=== PATIENT | female | born 1945 | race Caucasian/White ===

== ENCOUNTER 2018-06-02 05:23 | Inpatient (IN) ==
[2018-06-02] MEDS ORDERED: Chlorhexidine Gluconate 2% 1 Pack (2 Cloths) TOPICAL ONE (06:11)
[2018-06-02] MEDS ORDERED: Metoprolol Tartrate 25 MG Tablet PO ONE (06:11)
[2018-06-02] MEDS ORDERED: Dexamethasone Inj 20 MG/5 ML Vial IV.PUSH PRN (06:15)
[2018-06-02] MEDS ORDERED: Sodium Chlor 0.9% Inj 73.07 ML, Ropivacaine 0.5% PF Inj 24.63 ML, Ketorolac Inj 30 MG, ... P-ARTICULR SCH ×5 (06:30)
[2018-06-02] MEDS ORDERED: Chlorhexidine 4% Topical 120 APPLIC/120 ML Bottle TOPICAL SCH (06:30)
[2018-06-02] MEDS ORDERED: Post-op Orders (for Pharmacy) OTHER STA (06:56)
[2018-06-02] MEDS ORDERED: HYDROmorphone PF Inj 1 MG/ML Ampul IV.PUSH PRN (06:56)
[2018-06-02] MEDS ORDERED: ceFAZolin 2 GM Premix Inj 2 GM/50 ML PIGGYBACK IV.SIG SCH (07:00)
[2018-06-02] MEDS ORDERED: Vancomycin Inj 1,000 MG in Sodium Chlor 0.9% Inj 250 ML IV.SIG SCH (07:00)
[2018-06-02] MEDS ORDERED: TRANEXAMIC ACID IV.SIG SCH (07:00)
[2018-06-02] MEDS ORDERED: Sodium Chlor 0.9% Inj 500 ML IV.SIG SCH (07:00)
[2018-06-02] MEDS ORDERED: SODIUM CHLOR 0.9% IV.SIG SCH (07:00)
[2018-06-02] MEDS ORDERED: fentaNYL Citrate Inj 100 MCG/2 ML Ampul ONE ×2 (07:24→10:46)
[2018-06-02] MEDS ORDERED: Bupivacaine Liposomal PF 1.3% Inj 20 ML Vial ONE (07:24)
[2018-06-02] MEDS ORDERED: Clindamycin Inj 600 MG/4 ML Vial ONE (09:10)
[2018-06-02] MEDS ORDERED: Tranexamic Acid Inj 3,000 MG in Sodium Chlor 0.9% Inj 100 ML P-ARTICULR SCH (09:17)
--- NOTE | 2018-06-02 10:31 | MP ---
cc: Andreas Rodriguez MD DATE OF OPERATION: 06/02/2018 PREOPERATIVE DIAGNOSIS: Right knee osteoarthritis. POSTOPERATIVE DIAGNOSIS: Right knee osteoarthritis. PROCEDURE PERFORMED: Right total knee arthroplasty. SURGEON: Andreas Rodriguez MD. DELIVERY CONSULTANT: EARL Hatfield. ANESTHESIA: General with femoral nerve adductor canal block. ESTIMATED BLOOD LOSS: 100 mL. TOURNIQUET TIME: 28 minutes at 250 mmHg. COMPLICATIONS: None. IMPLANTS USED: DePuy Attune size 6 posterior stabilized femoral component, size 6 rotating platform tibial baseplate, size 38 patella, size 8 mm polyethylene tibial insert. JUSTIFICATION: The patient is a 72-year-old female with history of severe osteoarthritis involving the right knee. She has a history of severe disabling pain with standing, walking, ambulation, weightbearing activities, and severe pain at rest. She has failed greater than 3 months of nonoperative conservative treatment to include medication therapy, injections, ambulatory assistive aids, home exercise program, activity, medication, weight loss. X-rays of the right knee reveal severe osteoarthritis, kbxu-tv-vrim joint space narrowing, subchondral sclerosis, subchondral cyst, osteophyte formation with subluxation and deformity. The patient was counseled as to the risks, benefits, and alternatives to a total knee arthroplasty. The risks were discussed, which include but are not limited to anesthesia, bleeding, infection, damage to nerves and blood vessels, pain, stiffness, fracture, failure of components, blood clots, pulmonary embolism, and even . The patient's pain is severe. She favored the benefits over the risks. She did wish to proceed with surgery. PROCEDURE IN DETAIL: Written consent was obtained. The patient was identified by name, taken to the operating room and placed supine on the operating table. General anesthesia was administered, as well as 2 grams of IV Ancef and 600 mg of IV clindamycin. She did have a reaction as we began infusing vancomycin and so this was stopped. A well-padded tourniquet was placed on the right thigh. The right lower extremity was then prepped and draped using isopropyl alcohol, Hibiclens solution, and ChloraPrep solution. After a timeout was performed, an Esmarch bandage was used to exsanguinate the right lower extremity. Tourniquet was inflated to 250 mmHg. A longitudinal incision was made over the anterior aspect of the right knee. Medial parapatellar arthrotomy was performed. Patella was everted. The patellar resection guide was used to resect 9 mm of the patella. A size 38 mm guide was placed. Three drill holes were placed and a 38 mm trial fit well. Attention was turned to the femur, where an intramedullary guide was placed and distal femoral guide was set to remove 10 mm of distal femur, 5 degrees off the anatomic valgus axis alignment. Oscillating saw used to perform the distal femoral cut. Attention was turned to the tibia. An extramedullary tibial guide was set to remove 6 mm at the lowest portion of the medial tibial plateau. Tibial guide was pinned into placed and tibial cut was performed. A 5 mm spacer block ensured full extension. Attention was turned back to the femur. AP sizing block measured a size 6. The anterior reference 3-degree external rotation guide was used to pin a size [address] The anterior, posterior, and chamfer cuts were performed. A size 6 PCL box was pinned in place and the PCL was boxed with an oscillating saw. The medial and lateral meniscus remnants were removed, as well as bone and soft tissue debris from the posterior portion of the knee. A size 6 tibia base plate was pinned in place and tibia was drilled with a punch. Trial components were impacted and cemented in place. With the current components, the leg could to achieve full extension to 0 degrees and flexion to 140. No evidence of tibial liftoff. Varus valgus balance were appropriate and symmetric, and the patella was noted to track centrally. With the tourniquet deflated, Bovie cautery was used for hemostasis. The surgical wound was thoroughly irrigated with sterile saline and antibiotic-impregnated solution. The arthrotomy incision was closed with #1 Vicryl suture, subcutaneous layer with 2-0 Vicryl suture, skin was closed with Dermabond. Sterile dressing was applied. The patient tolerated the procedure well. No intraoperative complications noted. Rudy Kc PA-C, was present throughout the entire procedure to include patient positioning and the procedure itself. The medical necessity of a physician library technical assistant was indicated in this case due to the complexity of the procedure. He assisted with appropriate manipulation of the patient's leg and also retraction of the muscles, tendons, bone, and neurovascular structures. He assisted with preparation of bone and also implantation of the prosthetic replacement. MD Lucien Ro , 10:07 AM , 10:14 AM
[2018-06-02] MEDS ORDERED: Sugammadex Inj 200 MG/2 ML Vial IV.PUSH ONE (10:46)
[2018-06-02] MEDS ORDERED: Morphine Inj 4 MG/ML Vial ONE (10:46)
[2018-06-02] MEDS: Multivitamin/Minerals Therapeutic Tablet PO SCH ×2 (11:18→20:50)
[2018-06-02] MEDS: Senna/Docusate Sodium 8.6/50 MG Tablet PO SCH ×2 (11:18→20:21)
--- NOTE | 2018-06-02 11:38 | XR ---
EXAM DATE: 06/02/2018 11:12 AM EST AGE/SEX: 72 years / Female INDICATIONS: Post-op right total knee arthroplasty. CLINICAL DATA: This is the patient's initial encounter. Patient reports that signs and symptoms have been present for 1 day and indicates a pain score of 2/10. MEDICAL/SURGICAL HISTORY: None. Cholecystectomy. Gastric bypass. Mastectomy, right. COMPARISON: No prior exams available for comparison. FINDINGS: Postsurgical changes following right knee replacement are noted. Prostheses appear to be well seated in satisfactory alignment. Small amount of residual air is identified in the joint cavity. Osseous structures remain intact without evidence of acute complication. CONCLUSION: Satisfactory postoperative appearance following right knee replacement. Electronically signed by: George Ramírez MD 06/02/2018 11:37 AM EST
--- NOTE | 2018-06-02 14:05 | P.CONIM ---
History of Present Illness Service: [facility] Consult date: 06/02/18 Requesting Physician: Andreas Rodriguez Reason for Consult: MEDICAL MANAGEMENT Primary Care Provider: Hermelindo Daigle Chief Complaint: SP RIGHT TOTAL KNEE ARTHROPLASTY History of Present Illness: Patient is a 72-year-old female who underwent a right total knee arthroplasty due to severe osteoarthritis with failed conservative treatment. Patient underwent the right total knee arthroplasty today with Dr. Andreas Rodriguez, she tolerated the procedure well. We have now been asked to consult regarding medical management. Past medical history significant for osteoarthritis and chronic back pain and history of right breast cancer as well as history of a thyroid nodule with biopsy and a history of chronic joint pain and pacemaker as well as tinnitus. Family history is significant for hypertension as well as COPD and emphysema Review of Systems All other systems reviewed negative except as stated in [facility] - History History Provided By: Patient - Medical History Medical History: Medical History (Last Reviewed 06/02/18 @ 07:47 by Douglas Saucedo) Arthritis Back pain Diminished hearing History of bradycardia History of breast cancer History of thyroid nodule Joint pain Pacemaker Tinnitus Wears glasses - Surgical History Surgical History: Surgical History (Last Reviewed 06/02/18 @ 07:47 by Douglas Saucedo) History of breast biopsy History of cholecystectomy History of gastric bypass History of mastectomy - Family History Family History: Family History (Last Updated 06/02/18 @ 14:01 by Rene Beard DO) Other COPD (chronic obstructive pulmonary disease) Family history of hypertension - Social History I have reviewed the patient's Social History: Yes - Tobacco History Second Hand Smoke Exposure: No Smoking Status: Never smoker - Alcohol History How Often Do You Have a Drink Containing Alcohol: Never - Substance Use History Substance History: No History of Abuse - Travel History History of Recent Travel: No Recent Travel in the [place] Within the Last 8 Weeks: No Recent Travel Out of the Country Within the Last 8 Weeks: No Medications and Allergies Active Medications: Active Medications Hydrocodone Bitart/Acetaminophen ([place] 7.5/325) 2 tab PO Q6H PRN PRN Reason: PAIN SCALE 5 TO 10 Hydrocodone Bitart/Acetaminophen ([place] 7.5/325) 1 tab PO Q4H PRN PRN Reason: PAIN LESS THAN 5 ON SCALE Al Hydroxide/Mg Hydroxide (Milk Of Magnesia Liq) 30 ml PO BID PRN PRN Reason: Mild Constipation Aspirin (Aspirin Chew) 81 mg PO BID [facility] Last Admin: 06/02/18 11:18 Dose: Not Given Chlorhexidine Gluconate (Hibiclens 4% Topical) 1 applicatio TOPICAL ONCE [facility] Stop: 06/06/18 06:29 Last Admin: 06/02/18 07:14 Dose: 1 applicatio Sodium Chloride 73.07 ml/Ropivacaine 24.63 ml/Ketorolac Tromethamine 30 mg/ Epinephrine HCl 0.5 mg/Clonidine HCl 80 mcg 0 ml P-ARTICULR ONCE [facility] Stop: 06/02/18 15:00 Last Admin: 06/02/18 10:00 Dose: 123.15 bag Dexamethasone Sodium Phosphate (Decadron Inj) 10 mg IV.PUSH LEASE BUYER PRN PRN Reason: PRE-OP IN OR HOLDING Stop: 06/02/18 22:00 Last Admin: 06/02/18 07:16 Dose: 10 mg Diphenhydramine HCl (Benadryl) 25 mg PO Q6H PRN PRN Reason: ITCHING Hydromorphone HCl (Dilaudid Pf Inj) 1 mg IV.PUSH Q3H PRN PRN Reason: BREAKTHROUGH PAIN Lactated Ringer's (Lr 1000 Ml Inj) 1,000 mls @ 30 mls/hr IV.SIG .Q24H [facility] Stop: 06/03/18 06:14 Last Admin: 06/02/18 07:13 Dose: 30 mls/hr Sodium Chloride (Ns Inj) 500 mls @ 30 mls/hr IV.SIG .Q10H [facility] Last Admin: 06/02/18 11:17 Dose: Not Given Cefazolin Sodium/Dextrose (Ancef 2 Gm Premix Inj) 2 gm in 50 mls @ 100 mls/hr IV.SIG LEASE BUYER [facility] Stop: 06/06/18 06:59 Last Infusion: 06/02/18 09:05 Dose: Infused Tranexamic Acid 1,375 mg/ (Sodium Chloride) 113.75 mls @ 200 mls/hr IV.SIG ONCE [facility] Stop: 06/02/18 15:00 Last Infusion: 06/02/18 09:28 Dose: Infused Tranexamic Acid 3,000 mg/ (Sodium Chloride) 130 mls @ 200 mls/hr P-ARTICULR ONCE [facility] Stop: 06/02/18 15:00 Last Admin: 06/02/18 10:00 Dose: 200 mls/hr Vancomycin HCl 1,000 mg/ (Sodium Chloride) 250 mls @ 250 mls/hr IV.SIG LEASE BUYER [facility] Stop: 06/05/18 06:17 Last Infusion: 06/02/18 07:40 Dose: 0 mls/hr Cefazolin/Sodium Chloride (Ancef 2 Gm Premix Inj) 2 gm in 100 mls @ 200 mls/hr IV.SIG Q6H [facility] Stop: 06/03/18 03:29 Lactated Ringer's (Lr 1000 Ml Inj) 1,000 mls @ 80 mls/hr IV.CONT .[id number] [facility] Last Admin: 06/02/18 10:45 Dose: 80 mls/hr Lactulose (Lactulose Liq) 30 ml PO DAILY PRN PRN Reason: SEVERE CONSITIPATION Miscellaneous Information (Misc Nursing Information) 1 each OTHER UNSCH PRN PRN Reason: SEE LABEL COMMENTS Stop: 06/03/18 10:31 Multivitamins/Minerals (Theragran-M) 1 tab PO BID [facility] Stop: 08/01/18 08:59 Last Admin: 06/02/18 11:18 Dose: Not Given Ondansetron HCl (Zofran Inj) 4 mg IV.PUSH Q6H PRN PRN Reason: NAUSEA OR VOMITING Povidone Iodine (Betadine 7.5% Scrub) 1 applicatio TOPICAL ONCE [facility] Stop: 06/06/18 06:59 Senna/Docusate Sodium (Yesenia-Colace) 1 tab PO BID [facility] Last Admin: 06/02/18 11:18 Dose: Not Given Sennosides (Senokot) 17.2 mg PO BID PRN PRN Reason: Moderate Constipation Sodium Chloride (Ns Flush) 2 ml IV.FLUSH PRN PRN PRN Reason: FLUSH AFTER USING IV ACCESS Sodium Chloride (Ns Flush) 2 ml IV.FLUSH BID [facility] Last Admin: 06/02/18 11:18 Dose: Not Given Zolpidem Tartrate (Ambien) 5 mg PO HS PRN PRN Reason: INSOMNIA Allergies Allergy/AdvReac Type Severity Reaction Status Date / Time adhesive Allergy Severe Rash Verified 06/02/18 06:36 vancomycin AdvReac Intermediate Flushing Verified 06/02/18 08:02 Home Medications Medication Instructions Recorded Confirmed Type aspirin [Adult Low Dose Aspirin] 81 mg PO DAILY 05/15/18 06/02/18 History calcium carbonate [Antacid Calcium] 215 mg PO BID 05/15/18 06/02/18 History odljzuxsm-ypakvmrz-vyx-hyalur 1 tab PO DAILY 05/15/18 06/02/18 History [Joint Health] coenzyme Q10 [Co Q-10] 10 mg PO DAILY 05/15/18 06/02/18 History qxrdd-ks-6-cxq-ver-khyzhtw-ast 1 cap PO BID 05/15/18 06/02/18 History [krill oil] tnunlhntjdtn-fax-tceg-FA-vit K 1 tab PO DAILY 05/15/18 06/02/18 History [Adults Multivitamin] turmeric 1 cap PO DAILY 05/15/18 06/02/18 History vit Q9-uvcvbs-O5-T18-toeusxmq [B 1 ml SUBLINGUAL DAILY 05/15/18 06/02/18 History Complex] vit C,Z-Zu-ywjid-lutein-zeaxan 1 tab PO DAILY 05/15/18 06/02/18 History [PreserVision AREDS-2] Exam Vital signs: Vital Signs 06/02/18 07:05 06/02/18 07:23 06/02/18 08:00 Temperature 98.5 F Pulse Rate 65 60 68 Respiratory Rate 20 18 Blood Pressure 140/63 120/61 Pulse Oximetry 99 100 100 06/02/18 10:31 06/02/18 10:45 06/02/18 11:00 Temperature 97.9 F Pulse Rate 67 68 72 Respiratory Rate 14 15 14 Blood Pressure 132/63 134/62 137/63 Pulse Oximetry 100 98 98 06/02/18 11:15 06/02/18 11:30 Temperature 97.9 F Pulse Rate 64 65 Respiratory Rate 18 16 Blood Pressure 144/65 H 121/59 L Pulse Oximetry 100 98 Intake & Output 06/01/18 06/02/18 06/02/18 18:59 06:59 18:59 Intake Total 178.75 / 178.75 Balance 178.75 / 178.75 Weight 91.5 kg 91.5 kg Intake: IV 178.75 / 178.75 Cyklokapron Inj 1,375 MG In NS 113.75 / 113.75 Inj 100 ML @ 200 mls/hr IV.SIG ONCE [facility] Rx#:[id number] Ancef 2 GM Premix Inj 2 gm In 50 / 50 50 ml @ 100 mls/hr IV.SIG LEASE BUYER [facility] Rx#:[id number] Other: Weight On Admission 91.5 kg Narrative: GENERAL: Awake alert and oriented x3 talkative and cooperative --in no acute distress at this time SKIN: Warm and dry. HEAD: Atraumatic. Normocephalic. EYES: Pupils equal and round. No scleral icterus. No injection or drainage. EOMI ENT: No nasal bleeding or discharge. Mucous membranes pink and moist. NECK: Trachea midline. No JVD. Supple CARDIOVASCULAR: Regular rate and rhythm. S1-S2 no S3 or S4 RESPIRATORY: No accessory muscle use. Clear to auscultation. Breath sounds equal bilaterally. GASTROINTESTINAL: Abdomen soft, non-tender, nondistended. Hepatic and splenic margins not palpable. MUSCULOSKELETAL: Extremities without clubbing, cyanosis, or edema. No obvious deformities. Right lower extremity is dressed and wrapped NEUROLOGICAL: Awake and alert. No obvious cranial nerve deficits. Motor grossly within normal limits. Five out of 5 muscle strength in the arms and legs. Normal speech. PSYCHIATRIC: Appropriate mood and affect; insight and judgment normal. Results - Labs Labs: Laboratory Results - last 24 hr 06/02/18 06:49 Blood Type B Positive Blood Type Recheck Required Antibody Screen Negative - Imaging Impressions Knee X-Ray 06/02/18 06:55 CONCLUSION: Satisfactory postoperative appearance following right knee replacement. Assessment and Plan - Plan Status post right total knee arthroplasty due to severe osteoarthritis -Pain control per orthopedic -DVT prophylaxis per orthopedic Chronic back pain -Pain control as needed History of right breast cancer -Stable at this time History of thyroid nodule with biopsy -Check a TSH and a free T4 History of pacemaker -Currently stable History of tinnitus -Currently stable History of right breast biopsy with right breast cancer currently stable History of cholecystectomy History of gastric bypass History of right mastectomy Morbid obesity-weight loss recommended DVT and GI prophylaxis Home meds mainly consist of fvgy-kpb-szdgqch medications A.m. labs Code Status: Full code Discussed Condition With: RN and patient Discharge Planning: Pending orthopedic clearance
[2018-06-02] MEDS ORDERED: ceFAZolin 2 GM Premix Inj 2 GM/100 ML BAG IV.SIG SCH (15:00)
[2018-06-02] MEDS: ceFAZolin 2 GM Premix Inj 2 GM/50 ML PIGGYBACK IV.SIG SCH ×2 (17:42→20:20)
[2018-06-02] MEDS: Famotidine 20 MG Tablet PO SCH (20:21)
[2018-06-02] MEDS ORDERED: Zolpidem Tartrate 5 MG Tablet PO PRN (21:00)
[2018-06-03] MEDS: ceFAZolin 2 GM Premix Inj 2 GM/50 ML PIGGYBACK IV.SIG SCH (03:35)
[2018-06-03 08:11] LABS: Baso % (Auto) 0.4 % (0.0-2.0); Eos # (Auto) 0.1 th/mm3 (0.0-0.4); Eos % (Auto) 0.6 % (0.0-4.0); Hematocrit 29.3 % (35.0-46.0); Hemoglobin 9.4 gm/dL (11.6-15.3); Lymph # (Auto) 1.1 th/mm3 (1.0-4.8); Lymph % (Auto) 12.7 % (9.0-44.0); Mean Corpuscular Hemoglobin 23.6 pg (27.0-34.0); Mean Corpuscular Volume 73.7 fL (80.0-100.0); Mean Platelet Volume 9.1 fL (7.0-11.0); Mono # (Auto) 0.8 th/mm3 (0.0-0.9); Mono % (Auto) 8.8 % (0.0-8.0); Neut # (Auto) 6.8 th/mm3 (1.8-7.7); Neut % (Auto) 77.5 % (16.0-70.0); Platelet Count 176 th/mm3 (150-450); Red Blood Count 3.97 mil/mm3 (4.00-5.30); Red Cell Distribution Width 17.2 % (11.6-17.2); White Blood Count 8.8 th/mm3 (4.0-11.0)
--- NOTE | 2018-06-03 08:12 | P.PNOP ---
Subjective Interval history: doing well. ready to go home. wants to start OP PT this week. Physical Exam Vital signs: Vital Signs 06/02/18 10:31 06/02/18 10:45 06/02/18 11:00 Temperature 97.9 F Pulse Rate 67 68 72 Respiratory Rate 14 15 14 Blood Pressure 132/63 134/62 137/63 Pulse Oximetry 100 98 98 06/02/18 11:15 06/02/18 11:30 06/02/18 16:00 Temperature 97.9 F 97.5 F L Pulse Rate 64 65 68 Respiratory Rate 18 16 18 Blood Pressure 144/65 H 121/59 L 120/59 L Pulse Oximetry 100 98 99 06/02/18 19:45 06/03/18 00:35 06/03/18 05:10 Temperature 99.9 F H 97.7 F 98.3 F Pulse Rate 65 75 64 Respiratory Rate 16 16 17 Blood Pressure 119/58 L 99/51 L 113/54 L Pulse Oximetry 94 L 96 94 L Intake & Output 06/02/18 06/03/18 06/03/18 18:59 06:59 18:59 Intake Total 1428.75 / 1428.75 1580 / 1580 Output Total 100 / 100 Balance 1328.75 / 1328.75 1580 / 1580 Weight 91.5 kg 91.5 kg Intake: IV 228.75 / 228.75 1100 / 1100 LR 1000 mL Inj 1,000 ML @ 80 1000 / 1000 mls/hr IV.CONT .[id number] [facility] Rx# :[id number] Cyklokapron Inj 1,375 MG In NS 113.75 / 113.75 Inj 100 ML @ 200 mls/hr IV.SIG ONCE [facility] Rx#:[id number] Ancef 2 GM Premix Inj 2 gm In 100 / 100 100 / 100 50 ml @ 200 mls/hr IV.SIG Q6H [facility] Rx#:[id number] Oral 480 / 480 Anesthesia Amount 1200 / 1200 Output: Estimated Blood Loss 100 / 100 Other: # Voids 2 Date of Last Bowel Movement 06/01/18 Weight On Admission 91.5 kg Narrative: in bed, using cpm, nad dressing c/d/i neg homans nvi Results - Labs CBC & Chem 7: 06/03/18 06:55 06/03/18 06:55 - Imaging Impressions Knee X-Ray 06/02/18 06:55 CONCLUSION: Satisfactory postoperative appearance following right knee replacement. Assessment and Plan - Ortho Post Op Day # 1 - Assessment and Plan s/p R TKA wbat ok to maintain dressing unless saturated asa 81 d/c planning home - scheduled to start OP PT - cleared for d/c today f/up dr. marrufo 2 weeks
[2018-06-03 08:46] LABS: Albumin 3.2 g/dL (3.4-5.0); Anion Gap 9 meq/L (5-15); Aspartate Aminotransferase 26 U/L (15-37); Blood Urea Nitrogen 12 mg/dL (7-18); Calcium 8.4 mg/dL (8.5-10.1); Carbon Dioxide 24.6 meq/L (21.0-32.0); Chloride 106 meq/L (98-107); Glomerular Filtration Rate 78 mL/min (>89); Glucose,Random 88 mg/dL (74-106); Potassium 3.8 meq/L (3.5-5.1); Sodium 140 meq/L (136-145)
[2018-06-03 08:57] LABS: Alanine Aminotransferase 35 U/L (10-53); Alkaline Phosphatase 71 U/L (45-117); Free T4 (Free Thyroxine) 1.22 ng/dL (0.76-1.46); Phosphorus 2.9 mg/dL (2.5-4.9); Total Protein 6.4 g/dL (6.4-8.2)
[2018-06-03] MEDS: Famotidine 20 MG Tablet PO SCH (10:10)
[2018-06-03] MEDS: Senna/Docusate Sodium 8.6/50 MG Tablet PO SCH (10:10)
[2018-06-03] MEDS: Multivitamin/Minerals Therapeutic Tablet PO SCH (10:10)
--- NOTE | 2018-06-03 10:23 | P.PN ---
Subjective Interval history: Follow up on patient s/p right TKA. Patient seen and examined. Patient is looking forward to going home today. She denies any acute medical complaints. She denies any fever or chills. She denies any chest pain or dyspnea. She denies any nausea, vomiting or abdominal pain. She states her postoperative knee pain is well controlled. Physical Exam Vital signs: Vital Signs 06/02/18 10:31 06/02/18 10:45 06/02/18 11:00 Temperature 97.9 F Pulse Rate 67 68 72 Respiratory Rate 14 15 14 Blood Pressure 132/63 134/62 137/63 Pulse Oximetry 100 98 98 06/02/18 11:15 06/02/18 11:30 06/02/18 16:00 Temperature 97.9 F 97.5 F L Pulse Rate 64 65 68 Respiratory Rate 18 16 18 Blood Pressure 144/65 H 121/59 L 120/59 L Pulse Oximetry 100 98 99 06/02/18 19:45 06/03/18 00:35 06/03/18 05:10 Temperature 99.9 F H 97.7 F 98.3 F Pulse Rate 65 75 64 Respiratory Rate 16 16 17 Blood Pressure 119/58 L 99/51 L 113/54 L Pulse Oximetry 94 L 96 94 L 06/03/18 08:00 06/03/18 10:10 Temperature 98.2 F Pulse Rate 73 Respiratory Rate 16 16 Blood Pressure 120/60 Pulse Oximetry 98 Intake & Output 06/02/18 06/03/18 06/03/18 18:59 06:59 18:59 Intake Total 1428.75 / 1428.75 1580 / 1580 Output Total 100 / 100 Balance 1328.75 / 1328.75 1580 / 1580 Weight 91.5 kg 91.5 kg Intake: IV 228.75 / 228.75 1100 / 1100 LR 1000 mL Inj 1,000 ML @ 80 1000 / 1000 mls/hr IV.CONT .[id number] [facility] Rx# :[id number] Cyklokapron Inj 1,375 MG In NS 113.75 / 113.75 Inj 100 ML @ 200 mls/hr IV.SIG ONCE [facility] Rx#:[id number] Ancef 2 GM Premix Inj 2 gm In 100 / 100 100 / 100 50 ml @ 200 mls/hr IV.SIG Q6H [facility] Rx#:[id number] Oral 480 / 480 Anesthesia Amount 1200 / 1200 Output: Estimated Blood Loss 100 / 100 Other: # Voids 2 Date of Last Bowel Movement 06/01/18 Weight On Admission 91.5 kg Narrative: GENERAL: WDWN elderly female patient, INAD. Awake and alert. Appears comfortable. Sitting up in bedside chair. SKIN: Warm and dry. No generalized rash. HEENT: Atraumatic. Normocephalic. Pupils equal and round. No scleral icterus. No injection or drainage. No nasal bleeding or discharge. Mucous membranes pink and moist. NECK: Trachea midline. CARDIOVASCULAR: Regular rate and rhythm. +systolic murmur auscultated. RESPIRATORY: No accessory muscle use. Clear to auscultation. Breath sounds equal bilaterally. GASTROINTESTINAL: Abdomen soft, non-tender, nondistended. +BS. MUSCULOSKELETAL: Extremities without clubbing, cyanosis, or edema. s/p right TKA , postop dressing C/D/I. NV intact RLE distally. NEUROLOGICAL: Awake and alert. No obvious cranial nerve deficits. Motor grossly within normal limits. Able to move all extremities spontaneously. Normal speech. PSYCHIATRIC: Appropriate mood and affect; insight and judgment normal. Results - Labs CBC & Chem 7: 06/03/18 06:55 06/03/18 06:55 Laboratory Results - last 24 hr 06/03/18 06/03/18 06:55 06:55 WBC 8.8 RBC 3.97 L Hgb 9.4 L Hct 29.3 L MCV 73.7 L MCH 23.6 L MCHC 32.0 RDW 17.2 Plt Count 176 MPV 9.1 Neut % (Auto) 77.5 H Lymph % (Auto) 12.7 [place] % (Auto) 8.8 H Eos % (Auto) 0.6 Baso % (Auto) 0.4 Neut # (Auto) 6.8 Lymph # (Auto) 1.1 [place] # (Auto) 0.8 Eos # (Auto) 0.1 Baso # (Auto) 0.0 WBC Differential . Differential Comment Auto diff final Sodium 140 Potassium 3.8 Chloride 106 Carbon Dioxide 24.6 Anion Gap 9 BUN 12 Creatinine 0.73 Estimated GFR 78 L Random Glucose 88 Calcium 8.4 L Phosphorus 2.9 Magnesium 2.0 Total Bilirubin 0.4 AST 26 ALT 35 Alkaline Phosphatase 71 Total Protein 6.4 Albumin 3.2 L TSH 1.340 Free T4 1.22 - Imaging Impressions Knee X-Ray 06/02/18 06:55 CONCLUSION: Satisfactory postoperative appearance following right knee replacement. Assessment and Plan - Plan 72-year-old female who underwent a right total knee arthroplasty due to severe osteoarthritis with failed conservative treatment. [facility] consulted to assist with ongoing medical management. Status post right total knee arthroplasty due to severe osteoarthritis -Pain control per orthopedic service -DVT prophylaxis per orthopedic service Chronic back pain -Pain control as needed History of right breast cancer -Stable at this time History of thyroid nodule with biopsy -TSH and free T4 WNL History of pacemaker -Currently stable History of tinnitus -Currently stable History of right breast biopsy with right breast cancer currently stable History of cholecystectomy History of gastric bypass History of right mastectomy Morbid obesity-weight loss recommended DVT and GI prophylaxis ASA 81mg BID per Ortho service Home meds mainly consist of gwsi-qvw-ckeuwtd medications Discussed Condition With: patient, Dr. Serna Discharge Planning: discharge disposition per Ortho service
[2018-06-03 16:11] LABS: Hemoglobin A1c 5.9 % (4.3-6.0)
--- NOTE | 2018-06-04 07:29 | MD ---
cc: Andreas Rodriguez MD DATE OF DISCHARGE: 06/03/2018 ADMITTING DIAGNOSIS: Severe degenerative osteoarthritis, right knee. DISCHARGE DIAGNOSIS: Severe degenerative osteoarthritis, right knee. HISTORY OF PRESENT ILLNESS: Mrs. Xie is a 72-year-old female who has been a longstanding patient of Dr. Andreas Rodriguez at [facility]. Currently, she has been treated for progressive and severe right knee pain. The patient states the pain is a severe aching sensation aggravated by weightbearing activities. She has no alleviating factors, although in the past, she has tried medications, bracing, physical therapy, home exercise program and corticosteroid injections without long lasting relief of symptoms. She does have x-ray evidence of severe degenerative osteoarthritis of the right knee. While in the office, the patient was counseled on her diagnosis and treatment options. Risks, benefits, and indications discussed. The patient did elect to proceed with surgical intervention to include a right total knee arthroplasty. DATE OF SURGERY: 06/02/2018, right total knee arthroplasty. POSTOP: After surgery, the patient was admitted to [facility] where she received appropriate medical management, pain control, DVT prophylaxis, as well as physical therapy. DISCHARGE: Once being discharged from the hospital, the patient is cleared to go home. She is in stable condition. She may weight bear as tolerated. The patient is scheduled to start outpatient physical therapy on . The patient has been instructed on wound care management. She has been provided prescriptions for pain control and DVT prophylaxis medication. She has also been provided a followup appointment approximately 2 weeks from her date of surgery. The patient has asked appropriate questions, which have been answered. The patient is cleared for discharge. Dictated by EARL Monge Andreas Rodriguez MD JWM/es , 03:51 PM , 03:58 PM
== END 2018-06-03 11:09 | disposition home or self-care (01) ==
LOC: HSDI 05:23 → N06 12:07
PROVIDERS: ADMIT Orthopaedic Surgery Sports Medicine; ATTEND Orthopaedic Surgery Sports Medicine